=== PATIENT | male | born 1990 | race Caucasian/White ===

== ENCOUNTER 2022-10-17 04:54 | Emergency (ER) | payer BC, SELFPAY ==
[2022-10-17] VITALS (14 sets, daily range): BP systolic 123–142; BP diastolic 66–86; PULSE 54–69; RESP 13–17; TEMP 36–36.6; O2SAT 97–100
--- NOTE | 2022-10-17 05:11 | ECG_ITS ---
Measurements Intervals [place] Rate: 57 P: 61 UT: 171 QRS: 7 QRSD: 101 T: 23 QT: 384 QTc: 377 Interpretive Statements SINUS BRADYCARDIA INCOMPLETE RIGHT BUNDLE BRANCH BLOCK BASELINE WANDER- V4 BORDERLINE ECG NO PREVIOUS ECG AVAILABLE FOR COMPARISON Electronically Signed On 10-17-2022 7:59:28 ACUPRESSURIST by Terry Ronquillo D.O.
--- NOTE | 2022-10-17 05:11 | ED.GENADULT ---
HPI - General Adult General Chief complaint: Unspecified Stated complaint: feeling weird, heavy, low temp at home. Time Seen by Provider: 10/17/22 04:58 History of Present Illness HPI narrative: 32-year-old male with no significant past medical history presenting the emergency department for evaluation of Some head pressure, lightheadedness, nausea disoriented and tingling of his fingertips. Patient states this occurred after he woke up. Patient states symptoms have somewhat improved but have not resolved. Patient does have history of sleep apnea but has never had a sleep study. states that the patient does snore. Denies any medication changes. Related Data Allergies Allergy/AdvReac Type Severity Reaction Status Date / Time No Known Allergies Allergy Verified 10/17/22 04:59 Review of Systems Review of Systems: CONSTITUTIONAL: Denies fever, chills, or sweats. EYES: Denies visual changes, redness, or discharge. ENT: Denies rhinorrhea, congestion, sore throat, or otalgia. CARDIOVASCULAR: Denies chest pain, palpitations, or edema. RESPIRATORY: Denies cough or dyspnea. GASTROINTESTINAL: Denies abdominal pain, nausea, vomiting, or diarrhea. GENITOURINARY: Denies dysuria or hematuria. SKIN: Denies rash or itching. MUSCULOSKELETAL: Denies back pain, joint pain, or myalgia. NEUROLOGIC: See HPI PSYCHIATRIC: Denies anxiety or depression. Exam Narrative: APPEARANCE: Well appearing, no pain, no distress, well-nourished. HEAD: normocephalic, atraumatic. EYES: PERRLA/EOMI, conjunctivae clear. NOSE: Normal no drainage EARS:TMS clear with good light reflex. THROAT: Pharynx clear, no exudate. NECK: Supple. No adenopathy, no masses. RESPIRATORY: Airway patent, respirations nonlabored. Clear to auscultation bilaterally, no rales, rhonchi, wheezing. CARDIOVASCULAR: Regular rate and rhythm without murmurs rubs or gallops. ABDOMINAL: Soft, nontender, nondistended, normal bowel sounds MUSCULOSKELETAL: Moves all extremities. Strength/ROM intact, No edema, No calf tenderness. NEURO: Alert. Cranial nerves II through XII intact. Grossly intact. Negative Romberg. Normal forward and backward tandem gait. Normal comprehensive neuro exam. SKIN: Warm, dry. Normal Color Course Course Emergency Course: During her stay in the emergency department patient states he does feel significantly improved. Patient's vitals were within normal limits. Patient was not hypothermic. Patient had no leukocytosis. Patient's hemoglobin was at his baseline. Patient's electrolytes were within normal limits including magnesium. Patient's thyroid is not elevated. Patient was also negative for influenza COVID and RSV. Symptoms started shortly after patient woke up and as patient has been awake his symptoms have improved. Since patient does have untreated sleep apnea some of this may have been done to the effects of his sleep apnea. Difficult diagnosis is also considered included CVA, hypothyroidism, infectious etiologies. With the normal work-up and normal neuro exam with these differential doses are less likely. Patient was updated on the results of his work-up and was encouraged of close follow-up with his primary care physician. All questions and concerns were addressed. Patient was comfortable with the plan for discharge and follow-up. Vital Signs Vital signs: Vital Signs Temperature 96.8 F L 10/17/22 05:00 Pulse Rate 69 10/17/22 05:00 Respiratory Rate 16 10/17/22 05:00 Blood Pressure 142/85 H 10/17/22 05:00 Pulse Oximetry 100 10/17/22 05:00 Oxygen Delivery Room Air 10/17/22 05:00 Temperature 97.9 F 10/17/22 05:16 Pulse Rate 60 10/17/22 06:15 Respiratory Rate 15 10/17/22 06:15 Blood Pressure 133/86 10/17/22 05:16 Pulse Oximetry 97 10/17/22 06:15 Oxygen Delivery Room Air 10/17/22 05:00 Medical Decision Making Vital Signs Vital Signs: Vital Signs Temperature 96.8 F L 10/17/22 05:00 Pulse Rate 69 01
[2022-10-17 05:25] LABS: Basophils Absolute Auto 0.1 K/mm3 (0.0-0.1); Basophils Percent Auto 1.1 % (0.2-1.2); Eosinophils Absolute Auto 0.1 K/mm3 (0-0.3); Eosinophils Percent Auto 2.3 % (0-4.4); Hematocrit 43.5 % (42.0-52.0); Hemoglobin 15.1 g/dL (14.0-18.0); Lymphocytes Absolute Auto 3.42 K/mm3 (0.9-3.2); Lymphocytes Percent Auto 55.1 % (18.3-44.2); Mean Corpuscular HGB Conc 34.7 g/dl (32-36); Mean Corpuscular Hemoglobin 30.3 pg (26-34); Mean Corpuscular Volume 87.3 fl (80-100); Mean Platelet Volume 9.3 fl (7.4-10.4); Monocytes Absolute Auto 0.5 K/mm3 (0.1-0.6); Monocytes Percent Auto 8.2 % (2.6-8.5); Neutrophils Absolute Auto 2.1 K/mm3 (1.3-6.7); Neutrophils Percent Auto 33.3 % (45.5-73.1); Platelet Count Result 329 k/mm3 (150-375); Red Blood Count 4.98 M/mm3 (4.6-6.20); Red Cell Distribution Width 12.3 % (11.5-14.5); White Blood Count 6.2 K/mm3 (4.5-10.0)
[2022-10-17 05:45] LABS: Alanine Aminotransferase 28 U/L (6-50); Albumin Level 4.8 g/dL (3.5-5.1); Alkaline Phosphatase 54 U/L (38-126); Anion Gap 7 mmol/L (8-16); Aspartate Amino Transferase 39 U/L (17-59); Bilirubin,Total 0.9 mg/dL (0.2-1.3); Blood Urea Nitrogen 19 mg/dL (9-20); Carbon Dioxide 29 mmol/L (22-30); Chloride 102 mmol/L (98-107); Estimated CRCL calculation 102 ml/min; Estimated Glomerular Filt Rate > 60; Glucose 100 mg/dL (65-110); Magnesium 1.9 mg/dL (1.6-2.3); Potassium 4.3 mmol/L (3.4-5.0); Sodium 138 mmol/L (137-145)
[2022-10-17 06:01] LABS: Influenza A QL RT-PCR Negative (Negative); Influenza B QL RT-PCR Negative (Negative); RSV RNA, RT-PCR Negative (Negative); SARS-CoV-2 RNA PCR Negative
== END 2022-10-17 07:07 | disposition home or self-care (01) ==
PROVIDERS: Emergency Provider Emergency Medicine; PCP Family Medicine
DX: R51.9 Headache, unspecified (principal); Z20.822 Contact with and (suspected) exposure to COVID-19
CPT/HCPCS: 36415; 80053; 83735; 84443; 85025; 87637; 93005; 99283

== ENCOUNTER 2022-12-22 17:57 | Emergency (ER) | payer BC, SELFPAY ==
--- NOTE | ~2022-12-22 | XR_ITS ---
XR chest 2V DATE: 12/22/2022 18:44 INDICATION: Shortness of breath, right chest pain TECHNIQUE: PA and lateral views COMPARISON: None FINDINGS: Normal heart size. No hilar or mediastinal enlargement. Lungs are clear of infiltrate or co nsolidation. No pleural effusion or pulmonary vascular congestion or pneumothorax. IMPRESSION: Negative Reviewed, dictated and finalized at location [facility]. IMPRESSION: Negative
--- NOTE | ~2022-12-22 | CT_ITS ---
Clinical Indication: Shortness of breath, chest trauma CT Scan of the Chest with Contrast: Technique: Contiguous sections were acquired throughout the chest after intravenous administration of 75 cc of Omnipaque 350. Dose reduction technique was used on this scan by utilizing automated exposu re control and iterative reconstruction technique. The dose-length product (DLP) was 304.41 mGy-cm. Findings: There is no evidence of any significant mediastinal, hilar or axillary lymphadenopathy. There is no f illing defect in the pulmonary arterial tree to suggest pulmonary embolus. There is no evidence of ao rtic dissection or aneurysm. There is no evidence of pleural or pericardial effusion. 3 mm nodule noted along the right minor fissure (axial image 87). Additional 4 mm nodule noted along the left fissure (axial image 66). Images through the upper abdomen reveal no abnormalities. Impression: No acute abnormality. Subcentimeter pulmonary nodules, as above. According to Fleischner Society criteria, no further follo w-up required for a low-risk patient. For a high-risk patient, consider 12 month follow-up CT. Reviewed, dictated and finalized at [facility]. Impression: No acute abnormality. Subcentimeter pulmonary nodules, as above. According to Fleischner Society crit vicente, no further follow-up required for a low-risk patient. For a high-risk pat ient, consider 12 month follow-up CT.
[2022-12-22 18:32] VITALS: BP 118/70; PULSE 64; RESP 18; TEMP 36.8; O2SAT 100
--- NOTE | 2022-12-22 18:32 | ECG_ITS ---
Measurements Intervals [place] Rate: 57 P: 72 NC: 170 QRS: 40 QRSD: 102 T: 38 QT: 397 QTc: 387 Interpretive Statements SINUS BRADYCARDIA BORDERLINE ECG COMPARED TO ECG 10/17/2022 05:24:04 NO SIGNIFICANT CHANGES Electronically Signed On 12-23-2022 6:36:19 CDT by Terry Ronquillo D.O.
[2022-12-22 20:22] VITALS: BP 132/76; PULSE 65; RESP 16; TEMP 36.8; O2SAT 100
[2022-12-22 20:34] LABS: Basophils Absolute Auto 0.1 K/mm3 (0.0-0.1); Basophils Percent Auto 0.9 % (0.2-1.2); Eosinophils Absolute Auto 0.1 K/mm3 (0-0.3); Eosinophils Percent Auto 1.7 % (0-4.4); Hemoglobin 14.6 g/dL (14.0-18.0); Immature Granulocyte Absolute 0.01 K/mm3 (0.00-0.031); Immature Granulocyte Percent A 0.1 % (0-0.5); Lymphocytes Absolute Auto 3.71 K/mm3 (0.9-3.2); Lymphocytes Percent Auto 45.9 % (18.3-44.2); Mean Corpuscular Hemoglobin 29.9 pg (26-34); Mean Corpuscular Volume 88.1 fl (80-100); Mean Platelet Volume 9.4 fl (7.4-10.4); Monocytes Absolute Auto 0.5 K/mm3 (0.1-0.6); Monocytes Percent Auto 6.6 % (2.6-8.5); Neutrophils Absolute Auto 3.6 K/mm3 (1.3-6.7); Neutrophils Percent Auto 44.8 % (45.5-73.1); Platelet Count Result 290 k/mm3 (150-375); Red Blood Count 4.88 M/mm3 (4.6-6.20); Red Cell Distribution Width 12.1 % (11.5-14.5); White Blood Count 8.1 K/mm3 (4.5-10.0)
[2022-12-22 20:43] LABS: Alanine Aminotransferase 24 U/L (6-50); Albumin Level 4.6 g/dL (3.5-5.1); Alkaline Phosphatase 48 U/L (38-126); Anion Gap 9 mmol/L (8-16); Aspartate Amino Transferase 32 U/L (17-59); Bilirubin,Total 0.5 mg/dL (0.2-1.3); Blood Urea Nitrogen 16 mg/dL (9-20); Calcium 9.5 mg/dL (8.4-10.2); Carbon Dioxide 29 mmol/L (22-30); Chloride 102 mmol/L (98-107); Estimated CRCL calculation 102 ml/min; Estimated Glomerular Filt Rate > 60; Glucose 82 mg/dL (65-110); Potassium 4.2 mmol/L (3.4-5.0); Sodium 140 mmol/L (137-145)
--- NOTE | 2022-12-22 23:48 | ED.SOB ---
HPI - SOB/Dyspnea General Chief Complaint: Shortness of Breath/Dyspnea Stated Complaint: Labored breathing x12 days Time Seen by Provider: 12/22/22 22:57 Source: patient Mode of arrival: ambulatory Limitations: no limitations History of Present Illness HPI Narrative: Patient is a 32-year-old male who presents to the ED with report of difficulty breathing. Patient reports having mild difficulty breathing for the last 12 days after he was kneed in his right-sided chest wall while practicing [employer]. He began having difficulty breathing the next day. He states it is intermittent, occasionally worse with exertion, seems to be somewhat better laying flat. Describes it as though he feels winded and like he needs to take frequent deep breaths. He occasionally has pressure in his midsternal chest, but otherwise denies significant chest or chest wall pain. No recent cough, congestion, fevers, abdominal pain, nausea, vomiting, wheezing, history of coronary disease or blood clots. Patient was seen at an outside urgent care earlier this week and had negative chest x-ray. He attempted to follow-up with his primary care doctor today but was referred to the ED for further evaluation. Related Data Allergies Allergy/AdvReac Type Severity Reaction Status Date / Time No Known Allergies Allergy Verified 10/17/22 04:59 Review of Systems Review of Systems: CONSTITUTIONAL: Denies fever, chills, or sweats. ENT: Denies rhinorrhea, congestion, sore throat. CARDIOVASCULAR: See HPI. RESPIRATORY: See HPI. GASTROINTESTINAL: Denies abdominal pain, nausea, vomiting. GENITOURINARY: Denies dysuria or hematuria. All systems reviewed & are unremarkable except as noted in HPI and below PMFSH Past Medical History Medical History (Updated 12/23/22 @ 03:04 by Riana Juan PA-C) No pertinent past medical history Surgical History Surgical History (Updated 12/23/22 @ 00:47 by Riana Juan PA-C) No pertinent past surgical history Social History Social History (Updated 12/23/22 @ 00:47 by Riana Juan PA-C) Smoking status: Never smoker Exam Narrative: GENERAL: Well appearing, well-nourished, non-toxic, in no acute distress. HEAD: Normocephalic, atraumatic. NECK: Supple. No adenopathy, no masses. RESPIRATORY: Airway patent, respirations nonlabored. Clear to auscultation bilaterally, no rales, rhonchi, wheezing. No splinting. CARDIOVASCULAR: Regular rate and rhythm without murmurs, rubs, or gallops. Radial pulses 2+ and equal bilaterally. ABDOMINAL: Soft, minimal tenderness in RUQ, just below lower rib cage, nondistended, no hepatosplenomegaly. Normoactive BS. MUSCULOSKELETAL: Moves all extremities. Strength/ROM intact without gross deformities. Very mild tenderness along lower anterior lateral right-sided chest wall. No palpable deformities. SKIN: Warm, dry, normal color. No rashes. NEURO: A&O X3. Speech clear. Cranial nerves II-XII grossly intact. Steady gait. No ataxic movements. PSYCHIATRIC: Appropriate mood and affect. Normal interaction. Course Vital Signs Vital signs: Vital Signs Temperature 98.2 F 12/22/22 18:32 Pulse Rate 64 12/22/22 18:32 Respiratory Rate 18 12/22/22 18:32 Blood Pressure 118/70 12/22/22 18:32 Pulse Oximetry 100 12/22/22 18:32 Oxygen Delivery Room Air 12/22/22 18:32 Temperature 98.2 F 12/22/22 20:22 Pulse Rate 78 12/23/22 00:15 Respiratory Rate 20 12/23/22 00:15 Blood Pressure 123/84 12/23/22 00:15 Pulse Oximetry 100 12/23/22 00:15 Oxygen Delivery Room Air 12/22/22 18:32 MDM - SOB/Dyspnea MDM Narrative Medical decision making narrative: Patient presented to ED with 12-day history of mild dyspnea after being kneed in R chest during . Patient's vital stable upon arrival. No hypoxia, tachycardia, tachypnea. No signs of respiratory distress on exam. Very mild chest wall tenderness. Basic blood work obtained and unremarkable. EKG without
[2022-12-23 00:15] VITALS: BP 123/84; PULSE 78; RESP 20; O2SAT 100
[2022-12-23 00:25] LABS: Troponin I < 0.012 ng/mL (0.000-0.034)
[2022-12-23 01:00] LABS: D Dimer < 0.27 ug/mL (<0.48)
== END 2022-12-23 03:16 | disposition home or self-care (01) ==
PROVIDERS: Emergency Medicine; Emergency Provider Physician Assistant; PCP Family Medicine
DX: S20.211A Contusion of right front wall of thorax, initial encounter (principal); R06.02 Shortness of breath; R00.1 Bradycardia, unspecified; W51.XXXA Accidental striking against or bumped into by another person, initial encounter
CPT/HCPCS: 36415; 71046; 71260; 80053; 84484; 85025; 85380; 93005; 99284; Q9967